=== PATIENT | male | born 1945 | race Caucasian/White ===

== ENCOUNTER → 2021-08-31 | Outpatient (CLI) | payer MEDICARE, MEDICAID ==
[2021-08-31 11:22] LABS: CLARITY,URINE CLOUDY; COLOR,URINE YELLOW; GLUCOSE, URINE (UA) TRACE (NEGATIVE); KETONES,URINE NEGATIVE (NEGATIVE); LEUKOCYTE ESTERASE ,URINE NEGATIVE (NEGATIVE); NITRITE,URINE NEGATIVE (NEGATIVE); PH,URINE 5.5 (5-9); PROTEIN,URINE 2+ (NEGATIVE)
[2021-08-31 11:37] LABS: HEMATOCRIT 40 % (40-54); HEMOGLOBIN 12.9 g/dL (13.3-17.7); MEAN CORPUSCULAR HEMOGLOBIN 31 pg (25-34); MEAN CORPUSCULAR HGB CONC 32 g/dL (32-36); MEAN CORPUSCULAR VOLUME 96 fL (80-99); MEAN PLATELET VOLUME 11.2 fL (9.0-12.2); PLATELET COUNT 292 10^3/uL (130-400); WHITE BLOOD COUNT 16.2 10^3/uL (4.3-11.0)
[2021-08-31 12:18] LABS: BILIRUBIN,TOTAL 0.7 MG/DL (0.1-1.0); CALCIUM 8.6 MG/DL (8.5-10.1); CREATININE SERUM 0.9 MG/DL (0.60-1.30); POTASSIUM 3.3 MMOL/L (3.6-5.0)
[2021-08-31 12:19] LABS: ALBUMIN 3.3 GM/DL (3.2-4.5); TOTAL PROTEIN 6.8 GM/DL (6.4-8.2)
[2021-08-31 12:27] LABS: AMORPHOUS SEDIMENT,UR FEW AMOR URATES /LPF; BACTERIA,URINE NEGATIVE /HPF; WBC,URINE RARE /HPF
[2021-08-31 12:28] LABS: BILIRUBIN,URINE 1+ (NEGATIVE)
== END ==
PROVIDERS: ATTEND Family Medicine
DX: M62.81 Muscle weakness (generalized) (principal); R06.02 Shortness of breath
CPT/HCPCS: 36415; 80053; 81000; 85027

== ENCOUNTER 2022-07-12 18:11 | Emergency (ER) | payer MEDICARE, MEDICAID ==
--- NOTE | 2022-07-12 18:56 | Diagnostic Imaging Report ---
EXAMINATION: CT head and CT cervical spine without contrast. TECHNIQUE: Multiple contiguous axial images were obtained through the brain and cervical spine without the use of intravenous contrast. Sagittal and coronal reformations through the cervical spine were then performed. All CT scans use one or more of the following dose optimizing techniques: automated exposure control, MA and/or KvP adjustment based on patient size and exam type or iterative reconstruction. HISTORY: Head and neck pain after fall. COMPARISON: None available. FINDINGS: HEAD: Moderate diffuse cerebral volume loss with proportional enlargement of the ventricles and sulci. There is a patent cavum septum pellucidum. Moderate hypodensities throughout the supratentorial white matter of both cerebral hemispheres. No acute intracranial hemorrhage or abnormal extra-axial fluid collections are present. Calcification of the intracranial ICAs. No hyperdense vessel. The calvarium is intact. The mastoid air cells are clear. The visualized paranasal sinuses are clear. Surgical changes from cataract repair. There is a left frontal scalp hematoma without underlying fracture. C-SPINE: Vertebral body height and alignment are preserved. No acute fracture, dislocation, or destructive osseous process. There is multilevel facet hypertrophy without perched facets. There is multilevel cervical spondylosis. The paraspinous soft tissues are normal. The visualized thyroid gland is normal. The visualized lung apices are normal. IMPRESSION: 1. No acute intracranial abnormality. Chronic microangiopathy and volume loss. 2. Degenerative changes of the cervical spine without acute osseous abnormality. 3. Left frontal scalp hematoma without underlying calvarial fracture. Dictated by: Dictated on workstation # [id number]
--- NOTE | 2022-07-12 19:17 | ED Head Injury ---
General Chief Complaint: Trauma-Non Activation Stated Complaint: FALL; HEAD INJ Nursing Triage Note: Patient presents to the ED via EMS from [facility] with c/o fall. EMS report patient was sitting in his wheelchair, reached for something, and slid out hitting his head on the floor. Denies loss of conciousness. Hematoma noted to left side of forehead. Patient is awake and alert. Source: patient, EMS Exam Limitations: physical impairment (Dementia), other History of Present Illness Date Seen by Provider: Jul 12, 2022 Time Seen by Provider: 18:15 Initial Comments Patient is a 77-year-old intermediate patient with history of dementia presents with witnessed mechanical fall from sitting with frontal scalp injury. Patient reportedly was reaching over for dropped item on the floor when he slid forward striking his head on the ground. There is no witnessed loss of consciousness or change in mental status. The patient has a left frontal scalp hematoma with an ice pack applied. He currently denies headache, neck pain nausea and vomiting. No other injuries or complaints. No reported symptoms or weakness prior to fall. Location Injury Occurred: [facility] Occurred: just prior to arrival Location: other Method of Injury: other Associated Systoms: Other Allergies and Home Medications Allergies Coded Allergies: prednisone (Verified Allergy, Unknown, 07/12/22) Patient Home Medication List Home Medication List Reviewed: Yes Review of Systems Review of Systems Constitutional: see HPI Eyes: See HPI Ears, Nose, Mouth, Throat: see HPI Respiratory: see HPI Cardiovascular: see HPI Gastrointestinal: see HPI Genitourinary: see HPI Musculoskeletal: see HPI Psychiatric/Neurological: See HPI Endocrine: See HPI Hematologic/Lymphatic: See HPI All Other Systems Reviewed Negative Unless Noted: No Past Ufagpom-Rkyfvx-Nqzwxj Hx Patient Social History Tobacco Use?: No Past Medical History Surgery/Hospitalization HX: Alzheimer's; COPD; Non-ambulatory Physical Exam Vital Signs Vital Signs - First Documented 07/12/22 18:20 Temp 36.6 Pulse 81 Resp 16 B/P (MAP) 143/61 (88) Pulse Ox 93 O2 Delivery Room Air Capillary Refill : Less Than 3 Seconds Height, Weight, BMI Height: '" Weight: lbs. oz. kg; BMI Method: General Appearance: WD/WN, no apparent distress HEENT: PERRL/EOMI, normal ENT inspection, pharynx normal, other (Large frontal scalp hematoma) Neck: non-tender, supple Cardiovascular: normal peripheral pulses, regular rate, rhythm, no edema Psychiatric: alert, other (No motor weakness or loss of sensation) Crainal Nerves: normal speech, PERRL Motor/Sensory: no motor deficit, no sensory deficit Progress/Results/Core Measures Results/Orders My Orders Orders - LILLIAN ESPINOZA DO Ct Head/Cervical Spine Wo (07/12/22 18:33) Vital Signs/I&O 07/12/22 18:20 Temp 36.6 Pulse 81 Resp 16 B/P (MAP) 143/61 (88) Pulse Ox 93 O2 Delivery Room Air Blood Pressure Mean: 88 Departure Communication (Admissions) CT head: Large left frontal scalp hematoma without acute intracranial injury per radiology report Patient with witnessed mechanical fall without loss of consciousness or change in mental status with normal baseline neurologic exam. Patient is not on anticoagulation therapy. CT head neck negative. C-spine cleared. Typical closed head injury instructions provided. Impression Primary Impression: Minor head injury Additional Impression: Scalp hematoma Disposition: 01 HOME, SELF-CARE Condition: Stable Departure-Patient Inst. Decision time for Depature: 19:15 Referrals: JOANNE ALEJANDRO MD (PCP) Primary Care Physician Patient Instructions: Head Injury in Adults Add. Discharge Instructions: Aubrey was evaluated in the emergency department for a fall from standing resulting in head injury. CT imaging of the head and neck were provided and do not show an intracranial injury or skull fracture. Aubrey does have a scalp hematoma. Please apply paste nightly for 650 mg of Tylenol every 6 hours as needed for pain. Perform neurochecks on-call every 4 hours for the next 24 hours and follow-up with his PCP in 1 week for reevaluation. Return to the ED if new or concerning symptoms peer All discharge instructions reviewed with patient and/or family. Voiced understanding. LILLIAN ESPINOZA DO Jul 12, 2022 19:17
[2022-07-12 19:50] VITALS: BP 159/66
== END 2022-07-12 19:57 | disposition home or self-care (01) ==
LOC: EDUNIT# 18:11 → ER FS 18:15
DX: S09.90XA Unspecified injury of head, initial encounter (principal); S00.03XA Contusion of scalp, initial encounter; W18.30XA Fall on same level, unspecified, initial encounter
CPT/HCPCS: 70450; 72125

== ENCOUNTER → 2022-11-27 | Outpatient (CLI) | payer MEDICARE, MEDICAID ==
[2022-11-27 07:30] LABS: HEMATOCRIT 37 % (40-54); HEMOGLOBIN 12.3 g/dL (13.3-17.7); MEAN CORPUSCULAR HEMOGLOBIN 31 pg (25-34); MEAN CORPUSCULAR HGB CONC 33 g/dL (32-36); MEAN CORPUSCULAR VOLUME 94 fL (80-99); PLATELET COUNT 154 10^3/uL (130-400); WHITE BLOOD COUNT 9.2 10^3/uL (4.3-11.0)
[2022-11-27 07:55] LABS: CREATININE SERUM 0.84 MG/DL (0.60-1.30); POTASSIUM 3.9 MMOL/L (3.6-5.0)
== END ==
LOC: LAB FS 07:10
PROVIDERS: ATTEND Family Medicine
DX: R91.8 Other nonspecific abnormal finding of lung field (principal)
CPT/HCPCS: 36415; 80048; 85027

== ENCOUNTER → 2023-01-16 | Outpatient (CLI) | payer MEDICARE, MEDICAID ==
--- NOTE | 2023-01-16 17:25 | Diagnostic Imaging Report ---
INDICATION: Leg pain. FINDINGS: Noninvasive study performed in the routine fashion. Ankle-brachial index was 0.97 on the right side for the posterior tibial and 0.77 for dorsalis pedis and 0.79 at the digital level. On the left side, ankle-brachial index was 0.73 for the posterior tibial artery and 0.81 for the dorsalis pedis. At the digital level, the index was 0.5. There is degradation of the waveforms at the ankle level. IMPRESSION: Evidence of peripheral vascular disease as above. Consider CTA for further anatomic definition as clinically warranted. Dictated by: Dictated on workstation # [id number]
== END ==
LOC: RAD 12:51
PROVIDERS: ATTEND Family Medicine
DX: I87.2 Venous insufficiency (chronic) (peripheral) (principal)
CPT/HCPCS: 93922

== ENCOUNTER → 2023-01-27 | Outpatient (CLI) | payer MEDICARE, MEDICAID ==
[~2023-01-27] MED LIST: CATHETER FLUSH 10 ML SYR IV PRN; HOLD METFORMIN - RECEIVED CONTRAST 20 ML VIAL IV SCH; IOHEXOL 350 MG/ML 100 ML (OMNIPAQUE 350) VIAL IV ONE; NS 100 ML (IVPB) BAG IV ONE
--- NOTE | 2023-01-27 17:28 | Diagnostic Imaging Report ---
TECHNIQUE: CTA of the abdomen and pelvis is performed with runoff to the bilateral lower extremities. 3-D reformats were obtained and reviewed. Dose reduction techniques were utilized. REASON FOR EXAM: Peripheral vascular disease. Leg pain. COMPARISON: [facility] on 01/16/2023. FINDINGS: The included lungs are clear. The heart size is normal. There is calcified aortic atherosclerotic plaque without aneurysm. The celiac trunk, SMA, CRISELDA, and renal arteries are visualized and are patent. The liver, spleen, pancreas, adrenal glands, and kidneys have a normal CT appearance without acute abnormality. The gallbladder is nondistended. The portal vein is patent. No bowel obstruction. No free fluid or free air. The urinary bladder is nondilated. The osseous structures of the abdomen and pelvis have a normal appearance. Atherosclerotic plaque is seen throughout the bilateral common and external iliac arteries. Atherosclerotic plaque is seen in the bilateral common femoral arteries without significant stenosis. The profunda femoris arteries are seen bilaterally and are patent. Atherosclerotic plaque is seen throughout the bilateral superficial femoral arteries. There is high-grade stenosis in the mid left superficial femoral artery of approximately 90%. At least 70% stenosis is seen in the mid right superficial femoral artery. There is stenosis of 80-90% in the left popliteal artery, with 80% stenosis in the proximal right popliteal artery. Atherosclerotic plaque is seen throughout the bilateral anterior tibial, posterior tibial, and peroneal arteries. Two-vessel runoff is visualized on the left with loss of the peroneal artery just before the ankle. Three-vessel runoff is noted on the right. No acute osseous abnormalities are seen in the bilateral lower extremities. IMPRESSION: 1. Two-vessel runoff to the left ankle with 3 vessel runoff on the right. 2. High-grade stenosis in the mid left superficial femoral artery and left popliteal artery with moderate stenosis in the mid right superficial femoral artery and right popliteal artery. 3. Widespread atherosclerotic plaque throughout the bilateral lower extremity arterial systems and abdominal aorta. Dictated by: Dictated on workstation # [id number]
== END ==
LOC: RAD 15:00
PROVIDERS: ATTEND Family Medicine
DX: I70.202 Unspecified atherosclerosis of native arteries of extremities, left leg (principal); I70.203 Unspecified atherosclerosis of native arteries of extremities, bilateral legs; I70.0 Atherosclerosis of aorta
CPT/HCPCS: 75635; Q9967

== ENCOUNTER 2023-04-30 11:31 | Day surgery (SDC) | payer MEDICARE, MEDICAID ==
[2023-04-30] VITALS (7 sets, daily range): BP systolic 124–190; BP diastolic 71–99
[~2023-04-30] VITALS: Ht 170.2 cm; Wt 77.0 kg
[2023-04-30] MEDS ORDERED: NS IV 1000 ML 1,000 ML IV SCH ×2 (11:45→16:45)
[2023-04-30 12:09] LABS: HEMATOCRIT 42 % (40-54); MEAN CORPUSCULAR HEMOGLOBIN 31 pg (25-34); MEAN CORPUSCULAR HGB CONC 33 g/dL (32-36); MEAN CORPUSCULAR VOLUME 94 fL (80-99); MEAN PLATELET VOLUME 10.4 fL (9.0-12.2); PLATELET COUNT 166 10^3/uL (130-400); WHITE BLOOD COUNT 5.2 10^3/uL (4.3-11.0)
[2023-04-30] MEDS: NS IV 1000 ML 1,000 ML IV SCH ×3 (12:14→17:24)
[2023-04-30 12:20] LABS: INR 1.1 (0.8-1.4); PROTHROMBIN TIME PATIENT 14.2 SEC (12.2-14.7)
[2023-04-30] MEDS ORDERED: MEMA10TA2 PO (12:25)
[2023-04-30] MEDS ORDERED: RIVA2.5T5 PO (12:25)
[2023-04-30] MEDS ORDERED: DOCU-143 PO (12:25)
[2023-04-30] MEDS ORDERED: TIOT18CA2 IH (12:25)
[2023-04-30] MEDS ORDERED: QUET25TA35 PO (12:25)
[2023-04-30] MEDS ORDERED: ASPI-1238 PO (12:25)
[2023-04-30] MEDS ORDERED: BUSP5TAB59 PO (12:25)
[2023-04-30] MEDS ORDERED: DIVA250T2 PO (12:25)
[2023-04-30] MEDS ORDERED: POLY17PO6 PO (12:25)
[2023-04-30] MEDS ORDERED: ACET325T38 PO (12:25)
[2023-04-30] MEDS ORDERED: SERT50TA2 PO (12:25)
[2023-04-30] MEDS ORDERED: NAPR220T66 PO (12:25)
[2023-04-30 12:31] LABS: BILIRUBIN,TOTAL 0.6 MG/DL (0.1-1.0); CALCIUM 9.1 MG/DL (8.5-10.1); CREATININE SERUM 0.83 MG/DL (0.60-1.30); TOTAL PROTEIN 7.5 GM/DL (6.4-8.2)
--- NOTE | 2023-04-30 12:35 | Diagnostic Imaging Report ---
CHEST 1 VIEW, AP/PA ONLY. Indication: Workup before heart catheterization. Comparison: None available. Findings: Potential right upper lobe pulmonary nodule; otherwise, lungs are clear. No pleural effusion or pneumothorax. Normal heart size. Impression: Potential right upper lobe pulmonary nodule. A nonemergent CT chest without contrast is advised for further characterization. Dictated by: Dictated on workstation # [id number]
[2023-04-30] MEDS ORDERED: NS IV 1000 ML 1,000 ML ONE ×3 (13:20→14:19)
[2023-04-30] MEDS ORDERED: HEParin (CATH LAB) 2,000 ML IV ONE (13:20)
[2023-04-30] MEDS ORDERED: MIDAZOLAM INJ 5 MG/5 ML VIAL ONE (13:20)
[2023-04-30] MEDS ORDERED: LIDOCAINE 1% INJ 20 ML VIAL ONE (13:20)
[2023-04-30] MEDS ORDERED: fentaNYL INJECTION 100 MCG/2 ML VIAL ONE ×2 (13:20→14:45)
[2023-04-30] MEDS ORDERED: HEParin 1000 UNIT/ML (10ML VIAL) FOR BOLUS ONE (13:58)
[2023-04-30] MEDS ORDERED: NITRO DRIP 25000 MCG/D5W 250 ML IV ONE (13:59)
[2023-04-30] MEDS ORDERED: PROTAMINE 250 MG/25 ML VIAL ONE (14:04)
[2023-04-30] MEDS ORDERED: NS IV 500 ML 500 ML IV SCH (14:15)
[2023-04-30 15:25] LABS: HEMOGLOBIN 12.5 g/dL (13.3-17.7)
--- NOTE | 2023-04-30 15:40 | Peripheral Report ---
Peripheral Report Physician (s)/Insurance Adjuster (s) Physician NEL GAVIRIA MD Pre-Procedure Diagnosis Pre-Procedure Diagnosis: Peripheral arterial disease Post-Procedure Note Procedure Start Date: Apr 30, 2023 Name of Procedure: Bilateral lower extremities with runoff Third order Additional imaging Findings/Procedure Note PROCEDURE NOTE: Patient has nonhealing wound of his left lower extremity, CTA was abnormal suggestive of peripheral arterial disease, peripheral angiogram and intervention was recommended After explaining the procedure to the patient, all pros and cons were explained, all questions were answered. The patient signed the consent and then he was placed on the cardiac catheterization laboratory. The patient was placed on the cardiac catheterization laboratory. Groin was prepped SL fashion local anesthesia was used. Sheath placed in the right femoral artery, runoff to the right leg was done then rim catheter was placed at the bifurcation and runoff to the left leg was done then I advanced a Storq wire and placed a short straight catheter at the proximal left SFA and did runoff to the left leg. Attempt for percutaneous intervention: Patient received 5000 units of heparin Sheath was exchanged to 45 centimeters 7 Austrian sheath and placed at the left external iliac artery, I tried to advance the sheath with significant resistance. I proceeded with placement of a straight catheter at the proximal and mid left SFA and advanced command 18 ST through the total occlusion of the SFA. Before completing the advancement I noticed a large hematoma in the right groin. I held manual pressure without success in alleviating the bleed. Sheath was exchanged into a short 7 Austrian sheath and manual pressure applied diffuse the hematoma then patient received protamine sulfate Sheath was removed and manual pressure applied for about an hour then FemoStop placed FINDINGS: Right lower extremity: Heavily calcified SFA and iliac arteries Multiple segment of severe stenosis in the right SFA and popliteal artery Left lower extremity: Tortuous and calcified iliac and common femoral artery Total occlusion of the mid SFA reconstructed by collaterals with heavy calcification at the distal SFA Attempt for intervention to the left SFA with was made and aborted due to large hematoma noted in the right groin CONCLUSIONS: Severe bilateral SFA stenosis with total occlusion of the left SFA Attempt for intervention was done but aborted fci in the procedure due to the large hematoma in the right groin The sheath was removed and manual pressure applied then FemoStop applied DISCUSSION AND RECOMMENDATIONS: I will arrange for vascular surgery evaluation once patient is clinically stable Contrast Amount: 34 ml Total Radiation Dose: 136 mGy Post-Procedure Diagnosis Post-operative diagnosis: Nonhealing wound Peripheral arterial disease Hypertension Hyperlipidemia NEL GAVIRIA MD Apr 30, 2023 15:39
[2023-04-30] MEDS ORDERED: PATIENT MAY USE OWN MEDS, ALL PO SCH (15:45)
[2023-04-30] MEDS ORDERED: NS IV 500 ML 500 ML ONE (16:44)
[2023-04-30 17:12] LABS: HEMATOCRIT 39 % (40-54); HEMOGLOBIN 12.7 g/dL (13.3-17.7); MEAN CORPUSCULAR HEMOGLOBIN 30 pg (25-34); MEAN CORPUSCULAR HGB CONC 32 g/dL (32-36); MEAN CORPUSCULAR VOLUME 94 fL (80-99); MEAN PLATELET VOLUME 10.9 fL (9.0-12.2); PLATELET COUNT 155 10^3/uL (130-400); WHITE BLOOD COUNT 9.8 10^3/uL (4.3-11.0)
[2023-04-30] MEDS ORDERED: morphine INJ 4 MG/ML 1 ML (VIAL/SYRINGE) ONE (17:58)
[2023-04-30] MEDS: morphine INJ 4 MG/ML 1 ML (VIAL/SYRINGE) IVP PRN (18:02)
[2023-04-30 22:51] LABS: BASOPHILS # (AUTO) 0.1 10^3/uL (0.0-0.1); BASOPHILS % (AUTO) 1 % (0-10); HEMATOCRIT 38 % (40-54); HEMOGLOBIN 12.7 g/dL (13.3-17.7); MEAN CORPUSCULAR HGB CONC 33 g/dL (32-36); MEAN PLATELET VOLUME 10.6 fL (9.0-12.2)
[2023-04-30 22:53] LABS: EOSINOPHILS # (AUTO) 0.1 10^3/uL (0.0-0.3); EOSINOPHILS % (AUTO) 1 % (0-10); LYMPHOCYTES % (AUTO) 12 % (12-44); MEAN CORPUSCULAR HEMOGLOBIN 30 pg (25-34); MEAN CORPUSCULAR VOLUME 89 fL (80-99); MONOCYTES # (AUTO) 0.7 10^3/uL (0.0-1.0); MONOCYTES % (AUTO) 9 % (0-12); NEUTROPHILS % (AUTO) 76 % (42-75); PLATELET COUNT 122 10^3/uL (130-400); WHITE BLOOD COUNT 7.8 10^3/uL (4.3-11.0)
[2023-05-01] MEDS: morphine INJ 4 MG/ML 1 ML (VIAL/SYRINGE) IVP PRN (01:35)
[2023-05-01] MEDS: NS IV 1000 ML 1,000 ML IV SCH (02:54)
[2023-05-01 04:48] LABS: HEMATOCRIT 39 % (40-54); MEAN CORPUSCULAR HEMOGLOBIN 30 pg (25-34); MEAN CORPUSCULAR HGB CONC 33 g/dL (32-36); MEAN CORPUSCULAR VOLUME 89 fL (80-99); MEAN PLATELET VOLUME 10.6 fL (9.0-12.2); PLATELET COUNT 146 10^3/uL (130-400); WHITE BLOOD COUNT 6.3 10^3/uL (4.3-11.0)
[2023-05-01 05:04] LABS: POTASSIUM 3.7 MMOL/L (3.6-5.0)
[2023-05-01 05:06] LABS: CALCIUM 7.9 MG/DL (8.5-10.1)
[2023-05-01 05:10] LABS: CREATININE SERUM 0.78 MG/DL (0.60-1.30); PHOSPHORUS 2.6 MG/DL (2.3-4.7)
[2023-05-01 05:12] LABS: MAGNESIUM 1.7 MG/DL (1.6-2.4)
[2023-05-01] MEDS ORDERED: NS IV 500 ML 500 ML IV PRN (06:00)
[2023-05-01] MEDS ORDERED: POTASSIUM CL 10MEQ/50ML IVPB 50 ML IV SCH (06:00)
[2023-05-01] MEDS ORDERED: MAGNESIUM 1 GM/100 ML IVPB 100 ML IV SCH (06:00)
[2023-05-01] MEDS ORDERED: POTASSIUM CHLORIDE 20 MEQ TABLET PO SCH (06:00)
[2023-05-01] MEDS: POTASSIUM CL 10MEQ/50ML IVPB 50 ML IV SCH ×2 (06:46→07:46)
--- NOTE | 2023-05-01 08:26 | Cardiology Progress Note ---
Subjective Date Seen by Provider: May 01, 2023 Time Seen by Provider: 08:24 Subjective/Events-last exam Patient was seen at bedside laying down comfortably, large bruising on the right thigh Objective-Cardiology Exam Last Set of Vital Signs Vital Signs 05/01/23 05/01/23 05/01/23 04:00 07:22 08:00 Temp 37.5 Pulse 70 Resp 12 B/P (MAP) 160/76 (104) Pulse Ox 94 O2 Delivery Room Air I&O Intake and Output 05/01/23 00:00 Intake Total 1000 ml Balance 1000 ml Intake IV Total 1000 ml # Voids 2 General: Alert, Oriented X3, Cooperative HEENT: Atraumatic, PERRLA Neck: Supple, No JVD, No Thyromegaly Lungs: Clear to Auscultation, Normal Air Movement Heart: Regular Rate, Normal S1, Normal S2, No Murmurs Abdomen: Normal Bowel Sounds, Soft, No Tenderness, No Hepatosplenomegaly, No Masses Extremities: No Clubbing, No Cyanosis, No Edema, No Tenderness/Swelling, Other (Diminish pedal pulse) Skin: Other (Large bruising on the right thigh) Neuro: Normal Speech, Normal Tone, Sensation Intact Psych/Mental Status: Mood NL Results Lab Laboratory Tests 04/30/23 12:00 04/30/23 15:18 04/30/23 16:55 04/30/23 22:44 05/01/23 04:15 A/P-Cardiology Admission Diagnosis Peripheral arterial disease Anemia Hypertension Hyperlipidemia Assessment/Plan Peripheral arterial disease, extensive disease Status post large groin and thigh hematoma, manual pressure applied and FemoStop applied Continue to monitor H&H, I will refer for vascular surgery evaluation Anemia, status post blood transfusion Continue to monitor H&H Hypertension, monitor blood pressure Hyperlipidemia, monitor lipids Dementia NEL GAVIRIA MD May 01, 2023 08:26
--- NOTE | 2023-05-01 08:33 | Cardiology History & Physical ---
HPI-Cardiology Cardiology Consultation Date of Consultation 05/01/23 Date of Admission Time Seen by Provider: 08:31 Indication: Anemia, peripheral arterial disease HPI 78-year-old gentleman admitted for peripheral angiogram, during the procedure he was noted to have a large hematoma, manual pressure applied, blood transfusion received, patient was admitted to ICU and monitored. This morning having bruising on his thigh. Still having generalized weakness PMH-Cardiology Neurological Dementia Social History Patient Social History Marrital Status: single Family Hx Significant Family History: No Pertinent Family Hx ROS-Cardiology Review of Systems General: Fatigue, Malaise Pulmonary: No Dyspnea, No Cough, No Pleuritic Chest Pain, No Other Cardiovascular: No: Chest Pain, Palpitations, Orthopnea, Paroxysmal Noc. Dyspnea, Edema, Lt Headedness, Other Home Medications & Allergies Allergies: Coded Allergies: prednisone (Verified Allergy, Unknown, 07/12/22) Home Medication List Reviewed: Yes Exam-Cardiology Vital Signs Vital Signs Date Time Temp Pulse Resp B/P (MAP) Pulse Ox O2 Delivery O2 Flow Rate FiO2 05/01/23 08:00 70 160/76 (104) 94 Room Air 05/01/23 07:22 37.5 05/01/23 04:00 12 Exam General Appearance: Alert, Cooperative, No Acute Distress HEENT: Atraumatic, PERRLA Respiratory: Clear to Auscultation, Normal Air Movement Cardiovascular: Regular Rate, Normal S1, Normal S2, No Murmurs Abdominal: Normal Bowel Sounds, Soft, No Tenderness, No Hepatosplenomegaly, No Masses Extremities: No Clubbing, No Cyanosis, No Edema, Normal Pulses, No Tenderness/Swelling Skin: No Significant Lesion, Other (Large bruise on the thigh) Neuro: Normal Speech, Normal Tone, Sensation Intact Psych/Mental Status: Mental Status NL, Mood NL Results Labs Labs Laboratory Tests 04/30/23 12:00: White Blood Count 5.2, Red Blood Count 4.48, Hemoglobin 14.0, Hematocrit 42, Mean Corpuscular Volume 94, Mean Corpuscular Hemoglobin 31, Mean Corpuscular Hemoglobin Concent 33, Red Cell Distribution Width 13.0, Platelet Count 166, Mean Platelet Volume 10.4, Prothrombin Time 14.2, INR Comment 1.1, Activated Pa rtial Thromboplast Time 28, Sodium Level 138, Potassium Level 4.0, Chloride Level 101, Carbon Dioxide Level 29, Anion Gap 8, Blood Urea Nitrogen 16, Creatinine 0.83, Estimat Glomerular Filtration Rate 90, BUN/Creatinine Ratio 19, Glucose Level 91, Calcium Level 9.1, Corrected Calcium 9.1, Total Bilirubin 0.6, Aspartate Amino Transf (AST/SGOT) 19, Alanine Aminotransferase (ALT/SGPT) 16, Alkaline Phosphatase 70, Total Protein 7.5, Albumin 4.0, Triglycerides Level 74, Cholesterol Level 191, LDL Cholesterol Direct 133H, VLDL Cholesterol 15, HDL Cholesterol 49 04/30/23 15:18: Hemoglobin 12.5L, Hematocrit 40 04/30/23 16:55: White Blood Count 9.8, Red Blood Count 4.19L, Hemoglobin 12.7L, Hematocrit 39L, Mean Corpuscular Volume 94, Mean Corpuscular Hemoglobin 30, Mean Corpuscular Hemoglobin Concent 32, Red Cell Distribution Width 13.7, Platelet Count 155, Mean Platelet Volume 10.9 04/30/23 22:44: White Blood Count 7.8, Red Blood Count 4.27L, Hemoglobin 12.7L, Hematocrit 38L, Mean Corpuscular Volume 89, Mean Corpuscular Hemoglobin 30, Mean Corpuscular Hemoglobin Concent 33, Red Cell Distribution Width 15.8H, Platelet Count 122L, Mean Platelet Volume 10.6, Immature Granulocyte % (Auto) 1, Neutrophils (%) (Auto) 76H, Lymphocytes (%) (Auto) 12, Monocytes (%) (Auto) 9, Eosinophils (%) (Auto) 1, Basophils (%) (Auto) 1, Neutrophils # (Auto) 6.0, Lymphocytes # (Auto) 1.0, Monocytes # (Auto) 0.7, Eosinophils # (Auto) 0.1, Basophils # (Auto) 0.1, Immature Granulocyte # (Auto) 0.0, Percent Immature Platelet Fraction 4.4 05/01/23 04:15: White Blood Count 6.3, Red Blood Count 4.35, Hemoglobin 13.0L, Hematocrit 39L, Mean Corpuscular Volume 89, Mean Corpuscular Hemoglobin 30, Mean Corpuscular Hemoglobin Concent 33, Red Cell Distribution Width 15.8H, Platelet Count 146, Mean Platelet Volume 10.6, Sodium Level 139, Potassium Level 3.7, Chloride Level 107, Carbon Dioxide Level 23, Anion Gap 9, Blood Urea Nitrogen 13, Creatinine 0.78, Estimat Glomerular Filtration Rate 92, BUN/Creatinine Ratio 17, Glucose Level 82, Calcium Level 7.9L, Phosphorus Level 2.6, Magnesium Level 1.7 A/P-Cardiology Admission Diagnosis Peripheral arterial disease Anemia Hypertension Hyperlipidemia Admission Status: Inpatient Order (span 2 midnights) Reason for Inpatient Admission: Anemia Assessment/Plan Peripheral arterial disease, extensive disease Nonhealing ulcer on the left leg CTA showed severe peripheral arterial disease Status post large groin and thigh hematoma, manual pressure applied and FemoStop applied Continue to monitor H&H, I will refer for vascular surgery evaluation Anemia, status post blood transfusion Continue to monitor H&H Hypertension, monitor blood pressure Hyperlipidemia, monitor lipids Dementia History of tobaccoism Generalized weakness, consult rehab NEL GAVIRIA MD May 01, 2023 08:33
[2023-05-01] MEDS: MAGNESIUM 1 GM/100 ML IVPB 100 ML IV SCH ×3 (08:59→11:52)
[2023-05-01] MEDS ORDERED: MEMANTINE 10 MG TABLET PO SCH (09:00)
[2023-05-01] MEDS ORDERED: TIOTROPIUM INH 4 GM (SPIRIVA Respimat) IH SCH (09:00)
[2023-05-01] MEDS ORDERED: DIVALPROEX 250 MG DELAYED RELEASE TABLET PO SCH (09:00)
[2023-05-01] MEDS ORDERED: SERTRALINE 50 MG TABLET PO SCH (09:00)
[2023-05-01] MEDS ORDERED: ASPIRIN enteric coated 81MG TABLET PO SCH (09:00)
[2023-05-01] MEDS ORDERED: DOCUSATE SODIUM 100 MG CAPSULE PO SCH (09:00)
[2023-05-01] MEDS: busPIRone 5 MG TABLET PO SCH ×2 (09:08→13:53)
--- NOTE | 2023-05-01 09:47 | Consultation ---
HPI History of Present Illness: Aubrey Soto is a 78yo male with PMH of dementia ,COPD, severe PAD who was admitted for peripheral angiogram, during procedure he developed a large hematoma of right groin after vascular procedure on 04/30/23. He received 2 units of PRBCs and was admitted to the ICU for close monitoring. Per , patient has had nonhealing wound on left lucas for several months. CTA showed severe PAD with recommendation for attempted revascularization, hence angiogram performed. Due to hematoma, procedure was stopped and no stents were placed. Medicine was consulted for assistance with management of hematoma. At time of my assessment, patient is awake and alert up to chair. Denies shortness of breath or chest pain, though states he looks a little short of breath. Endorsing pain in right leg. No lightheadedness or dizziness. Per nursing, bruise felt quite hard overnight, seems softer today. reports baseline function is wheelchair bound, but gets around by scooting his feet. Patient does not walk. Source: patient, family, RN notes reviewed, spouse Date seen by provider: May 01, 2023 Time Seen by Provider: 09:30 Attending Physician Anand Troy MD PCP Admitting Physician: Attending Physician: Kapil Lynn MD Consult Medicine: Lindsay Gann MD Date of Admission 04/30/2023 Home Medications Home Medications Reviewed patient Home Medication Reconciliation performed by pharmacy medication reconciliations hydroelectric plant technician and/or nursing. Patients Allergies have been reviewed. Allergies Coded Allergies: prednisone (Verified Allergy, Unknown, 07/12/22) GNV-Comjuo-Sxvifq Hx Patient Social History Marrital Status: Living Status: [facility], [facility] in [facility] Smoking Status: Former Smoker Recent Hopitalizations: No Alcohol Use?: No Past Medical History Dementia Peripheral artery disease Hyperlipidemia Family Medical History Significant Family History: No Pertinent Family Hx Review of Systems ([facility]) Constitutional: No chills, No dizziness, No malaise; weakness EENTM: No ear pain, No blurred vision, No double vision, No throat pain Respiratory: No cough, No dyspnea on exertion, No short of breath Cardiovascular: No chest pain, No palpitations Gastrointestinal: No abdominal pain Genitourinary: No dysuria, No frequency Musculoskeletal: muscle pain (right thigh) Skin: see HPI Psychiatric/Neurological: See HPI Physical Exam-([facility]) Physical Exam Vital Signs VS - Last 72 Hours, by Label 04/30/23 04/30/23 04/30/23 04/30/23 12:02 15:15 15:25 15:30 Temp 36.6 Pulse 78 71 68 Resp 18 13 B/P (MAP) 190/80 (116) 142/83 (102) 161/82 (108) Pulse Ox 94 94 94 O2 Delivery Room Air Room Air Room Air 04/30/23 04/30/23 04/30/23 04/30/23 15:30 15:34 15:35 15:35 Temp 35.8 Pulse 68 71 71 Resp 13 B/P (MAP) 161/82 (108) Pulse Ox 94 O2 Delivery Room Air 04/30/23 04/30/23 04/30/23 04/30/23 15:45 16:00 16:15 16:30 Pulse 74 81 82 84 Resp 10 11 14 12 B/P (MAP) 109/66 (80) 123/113 (116) 97/77 (84) 99/80 (86) Pulse Ox 92 92 96 94 O2 Delivery Room Air Room Air Room Air Room Air 04/30/23 04/30/23 04/30/23 04/30/23 16:45 16:58 17:00 17:14 Temp 36.1 36.2 Pulse 90 89 89 89 Resp 12 13 13 11 B/P (MAP) 143/71 (95) 143/71 147/80 (102) 169/97 Pulse Ox 95 93 93 96 O2 Delivery Room Air Room Air Room Air Room Air 04/30/23 04/30/23 04/30/23 04/30/23 17:41 18:00 18:04 19:00 Temp 36.2 36.6 Pulse 85 78 79 76 Resp 15 10 13 B/P (MAP) 152/95 167/72 (103) 167/72 Pulse Ox 93 97 97 O2 Delivery Room Air Room Air Room Air 04/30/23 04/30/23 04/30/23 04/30/23 19:00 19:30 20:00 20:00 Temp 36.6 36.4 Pulse 76 81 75 80 Resp 17 18 12 16 B/P (MAP) 123/62 (82) 172/81 (111) 137/87 (104) 124/99 Pulse Ox 97 97 96 97 O2 Delivery Room Air Room Air Room Air Room Air 04/30/23 04/30/23 04/30/23 04/30/23 21:00 21:00 22:00 23:00 Pulse 75 73 78 Resp 27 9 13 B/P (MAP) 167/73 (104) 173/79 (110) 162/84 (110) Pulse Ox 97 94 95 97 O2 Delivery Room Air Room Air Room Air Room Air 05/01/23 05/01/23 05/01/23 05/01/23 00:00 01:00 01:00 02:00 Pulse 71 72 72 69 Resp 19 12 B/P (MAP) 160/115 (130) 166/77 (106) 146/80 (102) Pulse Ox 94 95 96 O2 Delivery Room Air Room Air Room Air 05/01/23 05/01/23 05/01/23 05/01/23 03:00 04:00 05:00 06:00 Pulse 76 74 75 73 Resp 12 12 B/P (MAP) 159/68 (98) 157/72 (100) 161/76 (104) 153/104 (120) Pulse Ox 96 96 94 93 O2 Delivery Room Air Room Air Room Air Room Air 05/01/23 05/01/23 05/01/23 05/01/23 07:00 07:22 07:32 08:00 Temp 37.5 Pulse 77 72 B/P (MAP) 156/92 (113) Pulse Ox 95 96 O2 Delivery Room Air Room Air 05/01/23 05/01/23 05/01/23 05/01/23 08:00 09:00 10:00 11:00 Pulse 70 85 67 69 B/P (MAP) 160/76 (104) 160/80 (106) 113/50 (71) 148/66 (93) Pulse Ox 94 94 95 95 O2 Delivery Room Air Room Air Room Air Room Air 05/01/23 11:13 Pulse Ox 94 O2 Delivery Room Air O2 Flow Rate 0.00 Capillary Refill : Greater Than 3 Seconds General Appearance: WD/WN, no apparent distress Eyes: Bilateral Eye Normal Inspection, Bilateral Eye PERRL, Bilateral Eye EOMI HEENT: pharynx normal Neck: non-tender, full range of motion Respiratory: lungs clear, normal breath sounds, no respiratory distress, no accessory muscle use Cardiovascular: regular rate, rhythm, no edema, no murmur Peripheral Pulses: 0 Dorsalis Pedis (R), 0 Left Dors-Pedis (L) Gastrointestinal: normal bowel sounds, non tender, soft Extremities: no pedal edema, no calf tenderness Neurologic/Psychiatric: alert, normal mood/affect, other (oriented to self and place) Skin: warm/dry, ecchymosis (large hematoma right upper thigh and groin, soft, tender) Assessment/Plan Assessment/Plan Admission Dx Severe PAD, hematoma right groin Admission Status: Observation (1) Hematoma of groin Onset Date: ~ 04/30/2023 Status: Acute Assessment & Plan: Secondary to peripheral angiogram 04/30/23. Currently involving half of upper thigh, soft. No s/s of compression syndrome at this ti nc, but will monitor closely. - Hold home Xarelto - Daily CBC Qualifiers: Qualified Codes: S30.1XXA - Contusion of abdominal wall, initial encounter (2) Severe peripheral arterial disease Status: Chronic Assessment & Plan: Severe PAD, unable to finish angiogram 04/30 due to hematoma. Consider further assessment in outpatient setting. nervous about further attempts and risk of further complications. - Restart xarelto once hematoma resolving (3) Dementia Status: Chronic Assessment & Plan: Currently lives in [facility], wheelchair bound. - PT eval and treat - continue home meds - delirium precautions Qualifiers: Qualified Codes: G30.1 - Alzheimer's disease with late onset; F02.B18 - Dementia in other diseases classified elsewhere, moderate, with other behavioral disturbance LINDSAY GANN MD May 01, 2023 09:47
--- NOTE | 2023-05-01 10:56 | Physical Therapy Evaluation ---
PT Evaluation-General Medical Diagnosis Admission Date April 30, 2023 Medical Diagnosis: PVD Onset Date: Apr 30, 2023 Therapy Diagnosis Therapy Diagnosis: debility Precautions Precautions/Isolations: Fall Prevention, Standard Precautions, Pressure Ulcer Referral Physician: Leah Reason for Referral: Evaluation/Treatment Medical History Pertinent Medical History: Dementia, HTN Current History Admit secondary to anemia and right thigh large hematoma Social History Home: Retirement Prior Prior Level of Function SCALE: Activities may be completed with or without assistive devices. 3-Znrivxzock-eigkxxp completes the activity by him/herself with no assistance from a helper. 5-Set-up or Clean-up Assistance-helper sets up or cleans up; patient completes activity. Erie assists only prior to or following the activity. 4-Supervision or Touching Assistance-helper provides verbal cues and/or touching/steadying and/or contact guard assistance as patient completes activity. Assistance may be provided throughout the activity or intermittently. 3-Partial/Moderate Assistance-helper does LESS THAN HALF the effort. Erie lifts, holds or supports trunk or limbs, but provides less than half the effort. 2-Substantial/Maximal Assistance-helper does MORE THAN HALF the effort. Erie lifts or holds trunk or limbs and provides more than half the effort. 5-Kqguzgqba-copgqo does ALL the effort. Patient does none of the effort to co mplete the activity. Or, the assistance of 2 or more helpers is required for the patient to complete the activity. If activity was not attempted, code reason: 7-Patient Refused. 9-Not Applicable-not attempted and the patient did not perform the activity before the current illness, exacerbation or injury. 10-Not Attempted due to Environmental Limitations-(lack of equipment, weather restraints, etc.). 88-Not Attempted due to Medical Conditions or Safety Concerns. Bed Mobility: 1 Transfers (B,C,W/C): 1 Gait: 9 Stairs: 9 Wheelchair Mobility: 1 Indoor Mobility (Ambulation): Not Applicalbe Stairs: Not Applicalbe Prior Devices Use: Manual wheelchair PT Evaluation-Current Objective Patient Orientation: Confused Attachments: IV ROM/Strength ROM Lower Extremities bilateral LE WFL Strength Lower Extremities 3-/5 grossly bilateral LE all planes Integumentary/Posture Bowel Incontinence: Yes Bladder Incontinence: Yes Neuromuscular (Tone, Coordination, Reflexes) diminished coordination Sensory Vision: Unable to Assess Hearing: Functional Transfers Roll Left to Right (QC): 1 Lying to Sitting/Side of Bed(Q: 1 Sit to Stand (QC): 1 Chair/Oga-qf-Xkxlp Xfer(QC): 1 resistive/dependent SPT Gait Does the Patient Walk?: No and Walking Goal NOT indicated Balance Sitting Static: Poor Sitting Dynamic: Poor Standing Static: Poor Assessment/Needs Patient will be seen short term by skilled PT to address transfers and strengthening. Patient is w/c bound PLOF and dependent with transfers. Patient very resistive with all mobility. Rehab Potential: Guarded PT Halfway Goals Bitum[employer] Applier Goals PT Bitumastic Applier Goals Time Frame: May 10, 2023 Roll Left & Right (QC): 2 Sit to Lying (QC): 2 Lying-Sitting on Side/Bed(QC): 2 Sit to Stand (QC): 2 Chair/Nbj-yt-Zdhti Xfer(QC): 2 PT Plan Problem List Problem List: Activity Tolerance, Functional Strength, Safety, Balance, Transfer, Bed Mobility Treatment/Plan Treatment Plan: Continue Plan of Care Treatment Plan: Bed Mobility, Education, Functional Activity Dmitry, Functional Strength, Safety, Therapeutic Exercise, Transfers Treatment Duration: May 10, 2023 Frequency: 5 times per week Estimated Hrs Per Day: .25 hour per day Time Time In: 1015 Time Out: 1030 DATE: May 01, 2023 Total Billed Treatment Time: 15 Total Billed Treatment 1 visit [facility] 15 min GEORGE CEDILLO PT May 01, 2023 10:56
[2023-05-01] MEDS ORDERED: ATOR10TA PO (12:47)
--- NOTE | 2023-05-01 12:47 | Discharge Inst-Post CATH ---
Discharge Inst-CATH/EP Problems Reviewed?: Yes Post Cardiac Cath/EP D/C Inst Follow Up/Plan Appointment with Dr Lynn next week <b>CARDIAC CATH/EP PROCEDURE DISCHARGE INSTRUCTIONS</b> ACTIVITY * Go Home directly and rest. * Limit activity of the leg (or wrist if it was used) for 7 days including aerobics, swimming, jogging, bicycling, etc. * Restrict stair-climbing for 7 days if possible, if not, climb up with your non-cath leg, then bring together on the same step. * Avoid lifting, pushing, pulling or excessive movement of the affected extremity for 7 days. * Customary sexual activity may be resumed after 2 days-use caution not to use a position that strains or causes pain to the affected extremity. * No driving for 24 hours. * NO SMOKING. * Avoid straining for bowel movements for 7 days. * Gentle walking on level ground is allowed. * Returning to work will depend on the type of procedure and the results. Your doctor will discuss this with you. CALL YOUR DOCTOR FOR ANY OF THE FOLLOWING: *If bleeding from the puncture site occurs- Apply gentle pressure to site with clean cloth and call your doctor or EMS. * If a knot or lump forms under the skin, increases in size, or causes pain. * If bruising appears to be worsening or moving further down your leg instead of disappearing. * Temperature above 101 F. CARE OF YOUR GROIN INCISION; * Bruising or purple discoloration of the skin near the puncture site is common. * You may shower only, no bathtub bathing for 5 days. Be careful to avoid slipping as your leg may feel stiff. * If a closure device was used on your femoral artery, please see the attached guide regarding care of the device and your leg. * Leave dressing on FOR 24 hours. CARE OF YOUR WRIST INCISION; * Bruising or purple discoloration of the skin near the puncture site is common. * You may shower. * DO NOT submerge wrist. * Leave dressing on FOR 24 hours. NEL LYNN MD May 01, 2023 12:47
[2023-05-01 16:23] VITALS: BP 145/85
[2023-05-01] MEDS ORDERED: QUEtiapine IMMEDIATE RELEASE 25 MG TABLET PO SCH (21:00)
== END 2023-05-01 15:48 ==
LOC: CATH 11:31 → ICU 15:25 → CATH 05-01 15:48
PROVIDERS: ATTEND Internal Medicine Cardiovascular Disease
DX: I70.203 Unspecified atherosclerosis of native arteries of extremities, bilateral legs (principal); I70.92 Chronic total occlusion of artery of the extremities; L97.929 Non-pressure chronic ulcer of unspecified part of left lower leg with unspecified severity; I10 Essential (primary) hypertension; I25.10 Atherosclerotic heart disease of native coronary artery without angina pectoris; E78.01 Familial hypercholesterolemia; E78.5 Hyperlipidemia, unspecified; N50.1 Vascular disorders of male genital organs; G30.1 Alzheimer's disease with late onset; F02.B18 Dementia in other diseases classified elsewhere, moderate, with other behavioral disturbance; Z87.891 Personal history of nicotine dependence
CPT/HCPCS: 36247; 36248; 71045; 75716; 80048; 80053; 80061; 83735; 84100; 85014; 85018; 85025; 85027 ×2; 85610; 85730; 86850; 86900; 86901; 86920; 87081; 93005; 94640; 97162; C1760; C1769; C1887 ×2; C1894 ×2; P9016; 36415